=== PATIENT | female | born 1960 | race Caucasian/White ===

== ENCOUNTER 2025-02-15 10:45 | Day surgery (SDC) | payer MEDICARE, BC, SELFPAY ==
[2025-02-15] VITALS (13 sets, daily range): BP systolic 96–149; BP diastolic 61–89; PULSE 53–75; RESP 16; TEMP 36.1–36.6; O2SAT 91–99; BMI 26.9
[2025-02-15] MEDS: LACTATED RINGERS 1000 ML 1,000 ML 100 ML IV ×2 (11:30→13:00)
[2025-02-15] MEDS: SODIUM CHLORIDE 0.9 % (FLUSH) 10 ML SYRINGE IVF (11:30)
[2025-02-15] MEDS: MIDAZOLAM HCL 1 MG/ML inj IVP (11:40)
--- NOTE | 2025-02-15 11:53 | SUR.PREOP ---
TIME?OUT:?1140 PT/perico hernandez RN/pacheco grady MDA?VERIFICATION?OF?SURGICAL?SITE,?PROCEDURE,?AND?CONSENT OBTAINED?PRIOR?TO?INVASIVE?PROCEDURE.
--- NOTE | 2025-02-15 12:18 | W.PM.NB ---
Nerve Block Nerve Block Time Seen by Provider: 11:40 Date Seen: 02/15/25 Type of block requested by surgeon for post-operative analgesia: supraclavicular Side: right Time out performed: Yes Verification of patient name: Yes Verification of date of : Yes Site marking: site marked Name of person performing procedure: Rei Continuous monitoring Was continuous monitoring of O2 sat, B/P, industrial fabric cutter, recorded every 15 minutes?: Yes Procedure Checklist: sterile prep, needles and gloves Ultrasound guided. Images saved: Yes Medications given in 5ml increments after negative aspiration: Ropivicaine %: 0.5 mL: 20 Needle gauge: 22 Precedex (mcg): 25 Patient tolerated procedure well: Yes Block Charges Block Charge (with Pro Fee): Brachial Plexus Use of Ultrasound Machine for Block: Yes- US Guidance/pain block
--- NOTE | 2025-02-15 13:16 | P.ANES_ITS ---
Anesthesia Charges Start Date/Time Anesthesia Start Date: 02/15/25 Anesthesia Start Time: 12:00 Stop Date/Time Anesthesia Stop Date: 02/15/25 Anesthesia Stop Time: 14:14 Coding CPT Codes CPT Codes: ANESTH UPPER ARM SURGERY - 04360 ([id number]) P2 - PATIENT W/MILD SYST DISEASE, QK - SUPERVISOR PAINT ROLLER COVERS 2-4 CNCRNT ANES PROC, QX - KNITTING MACHINE FIXER HEAD SVC W/ MD MED DIRECTION
--- NOTE | 2025-02-15 13:16 | W.ANESCHARGE ---
Anesthesia Charges Start Date/Time Anesthesia Start Date: 02/15/25 Anesthesia Start Time: 12:00 Stop Date/Time Anesthesia Stop Date: 02/15/25 Anesthesia Stop Time: 14:14 Coding CPT Codes CPT Codes: ANESTH UPPER ARM SURGERY - 57182 ([id number]) P2 - PATIENT W/MILD SYST DISEASE, QK - WASH HOUSE WORKER 2-4 CNCRNT ANES PROC, QX - MIDDLE SCHOOL TECHNOLOGY TEACHER SVC W/ MD MED DIRECTION
--- NOTE | 2025-02-15 13:39 | P.ORPRC_ITS ---
Procedure Note Date of procedure: 02/15/25 Procedure: PREOPERATIVE DIAGNOSIS: Right upper extremity displaced 3+ part olecranon fracture POSTOPERATIVE DIAGNOSIS: Right upper extremity displaced 3+ part olecranon fracture NAME OF OPERATION: ORIF SURGEON: Boris Mancuso MD ORDERING MACHINE OPERATOR: Tia Sánchez PA-C ANESTHESIA: General plus supraclavicular block ESTIMATED BLOOD LOSS: 20 mL COMPLICATIONS: None SPECIMENS: None DRAINS: None PREOPERATIVE ANTIBIOTICS: Ancef 1 g INDICATIONS: The patient is a 64-year-old who sustained a right upper extremity olecranon fracture after falling onto her elbow. ORIF was recommended. The risks, benefits and expected outcomes were discussed in detail. These included but were not limited to: Infection, bleeding, injury to blood vessel or nerve, venous thromboembolism. All questions were answered to their satisfaction. PROCEDURE: A supraclavicular block was placed. The patient was placed supine on the operating room table. General anesthesia was administered. The patient is placed in the left lateral decubitus position, right arm up, secured to the table with the beanbag. All bony prominences were well padded. The right upper extremity was prepped and draped in the usual sterile fashion. The limb was exsanguinated with the Enrike bandage. The pneumatic tourniquet was inflated to 200 mmHg. A longitudinal incision was made over the olecranon, it was curved radially over the point of the olecranon. Given the deep abrasion over the olecranon it was difficult to avoid with our incision. There was a small strip of un violated skin between the 2 abrasions that we tried to use for our incision. Subcutaneous dissection taken sharply to the fracture which was subperiosteal exposed. Fracture hematoma was evacuated with the curette and suction. An anatomic reduction was obtained with a K-wire placed in the proximal fragment. We split the triceps insertion longitudinally to allow the plate to sit flush on the proximal fragment. The Synthes olecranon plate was placed over the dorsal cortex. It was prov isionally fixed to the shaft fragment with a K wire. Its placement was confirmed with the image intensifier. It was felt that the intercalary fragment was still somewhat punch down and rotated. Therefore, we took the construct apart and placed a Eldridge under the intercalary fragment and elevated up to the articular surface of the trochlea. We then we reduced the olecranon on, driving the K-wire distal into the canal of the shaft fragment. Finally, we placed the plate over the K-wire proximally and advanced distally and provisionally secured it with a K-wire in the shaft. Again, this construct was evaluated with the image intensifier and was felt to be improved. We placed a cortical screw in the most distal hole, in compression. We placed a locking screw in the shaft. We then placed a locking screw in the proximal fragment and the home run screw. Finally, we placed another locking screw in proximal fragment and a final locking screw in the shaft fragment to complete the fixation. This construct was evaluated with the image intensifier in the AP and lateral views. Implants appear to be well placed and the reduction of the fracture appears anatomic. The wound was irrigated with normal saline. The triceps split was repaired with an 0 Vicryl suture. Skin was closed with a 2-0 Vicryl deep and a 3-0 Monocryl in a subcuticular fashion. A dry dressing was applied, and a long-arm splint were applied. The tourniquet was released. Sponge and needle counts were correct x 2. The patient tolerated the procedure well. There were no apparent complications. They were carefully transferred to the hospital bed and taken to the postanesthesia care unit in satisfactory condition. PLAN: The patient will be discharged to home. They will work on ice and elevation. They will follow up in the office in 1-2 weeks for a wound check and three views of the elbow out of the splint prior to being seen in preparation for early active range of motion.
--- NOTE | 2025-02-15 14:16 | P.ANES_ITS ---
Anesthesia Charges Start Date/Time Anesthesia Start Date: 02/15/25 Anesthesia Start Time: 12:00 Stop Date/Time Anesthesia Stop Date: 02/15/25 Anesthesia Stop Time: 14:15 Coding CPT Codes CPT Codes: ANESTH UPPER ARM SURGERY - 89387 ([id number]) P3 - PATIENT W/SEVERE SYS DISEASE, QK - MACHINE INKER 2-4 CNCRNT ANES PROC
--- NOTE | 2025-02-15 14:16 | W.ANESCHARGE ---
Anesthesia Charges Start Date/Time Anesthesia Start Date: 02/15/25 Anesthesia Start Time: 12:00 Stop Date/Time Anesthesia Stop Date: 02/15/25 Anesthesia Stop Time: 14:15 Coding CPT Codes CPT Codes: ANESTH UPPER ARM SURGERY - 27740 ([id number]) P3 - PATIENT W/SEVERE SYS DISEASE, QK - MANAGER STERILE PROCESSING 2-4 CNCRNT ANES PROC
== END 2025-02-15 15:25 | disposition home or self-care (01) ==
LOC: OR 10:49
PROVIDERS: PCP Family Medicine; Visit Provider Orthopaedic Surgery
PROC: (CPT 24685; principal; 2025-02-15 12:15)
DX: S52.021A Displaced fracture of olecranon process without intraarticular extension of right ulna, initial encounter for closed fracture (principal); G89.18 Other acute postprocedural pain
CPT/HCPCS: 24685; 01740; 64415; 73080; 76000; 76942; C1713; J0330; J0690; J1100; J2250; J2371; J2405; J2704; J2710; J2795; J3010; J7120

== ENCOUNTER 2025-05-23 10:41 | Outpatient (CLI) | payer MEDICARE, BC, SELFPAY ==
--- NOTE | 2025-05-23 13:45 | MR_ITS ---
EXAM: MRI of the RIGHT SHOULDER WITHOUT CONTRAST CLINICAL HISTORY: Right shoulder pain. Evaluate for rotator cuff tear. COMPARISONS: Plain radiographs 05/21/2025. TECHNICAL: MRI sequences of the right shoulder: Axials: PD, PDFS Coronals: PD, T2FS Sagittals: PDFS, T2 SEDATION: None CONTRAST: None FINDINGS: Bones: No fracture or suspicious bone marrow signal abnormality. Coracoacromial arch: Acromion: No os acromiale. Type I-II acromion. Acromioclavicular joint: Moderate osteoarthritis. Coracoclavicular ligament: The coracoclavicular ligament is intact. Rotator cuff muscles/tendons: Supraspinatus: 5 mm in AP dimension by 2 mm in transverse dimension concealed slitlike partial-thickness intrasubstance tear within the supraspinatus tendon insertional footprint contacting the cortical insertional surface best seen on coronal series 5 image 10 and sagittal series 7 image 6. No muscular atrophy. Infraspinatus: The infraspinatus tendon and muscle are intact. Teres minor: The teres minor tendon and muscle are intact. Subscapularis: Mild tendinopathy. No muscular atrophy. Labrum and glenohumeral joint: No evidence of labral tear although evaluation is suboptimal because of nonarthrogram technique. Physiologic amount of joint fluid. No discrete chondral defect or subchondral bone marrow edema/cystic change is seen. Edema-like signal within and thickening of the inferior glenoid ligament/glenohumeral joint capsule. Proximal biceps tendon, long head and short heads: Biceps tenosynovitis. The short head is intact. Bursae: Subacromial/subdeltoid: No convincing subacromial bursal thickening/bursitis. Subcoracoid: No convincing subcoracoid bursal thickening/bursitis. IMPRESSION: 1. Findings highly associated with adhesive capsulitis. 2. Tiny 5 x 2 mm concealed slitlike partial-thickness intrasubstance tear within the supraspinatus tendon insertional footprint contacting the cortical insertional surface. 3. Mild subscapularis tendinopathy. 4. Moderate acromioclavicular joint osteoarthritis. 5. Biceps tenosynovitis. 6. No rotator cuff muscular atrophy of the right shoulder. RCB Electronically signed on 05/23/2025 1:58:00 PM by Tavon Diop M.D.
== END 2025-05-23 10:42 | disposition home or self-care (01) ==
LOC: MRI 10:41
PROVIDERS: PCP Family Medicine; Visit Provider Physician Assistant
DX: M75.01 Adhesive capsulitis of right shoulder (principal); M75.111 Incomplete rotator cuff tear or rupture of right shoulder, not specified as traumatic; M67.813 Other specified disorders of tendon, right shoulder; M19.011 Primary osteoarthritis, right shoulder; M75.21 Bicipital tendinitis, right shoulder; M25.511 Pain in right shoulder
CPT/HCPCS: 73221